=== PATIENT | female | born 2005 | race Caucasian/White ===

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

== ENCOUNTER 2025-08-02 10:52 | Outpatient (CLI) | payer OTHER, SELFPAY | END 2025-08-02 10:53 | disposition home or self-care (01) | PROVIDERS: Visit Provider Obstetrics & Gynecology | DX: F64.9 Gender identity disorder, unspecified (principal) | CPT/HCPCS: 80061; 84270; 84402; 84403 ==